=== PATIENT | male | born 2000 | race Caucasian/White ===

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

== ENCOUNTER 2018-06-04 15:39 | Emergency (ER) | payer BC ==
[~2018-06-04] VITALS: Ht 172.7 cm; Wt 77.1 kg
[2018-06-04 15:49] VITALS: BP 120/67
--- NOTE | 2018-06-04 16:02 | PHYS DOC ---
Past History Past Medical History: No Pertinent History Past Surgical History: Tonsillectomy Smoking: Non-smoker Alcohol Use: None Drug Use: None Adult General Chief Complaint Chief Complaint: Neck Pain HPI HPI Patient is a 17-year-old male patient who presents with complaining of neck pain. Patient states he was playing football today and hit somebody and since then has had pain in his neck that getting worse with bending his head or turning his head to right side. Patient rated his pain 2 at rest and 4 with movement and denies focal neuro deficit, nausea and vomiting, headache, loss of consciousness. Review of Systems Review of Systems Constitutional: Denies fever or chills [] Eyes: Denies change in visual acuity, redness, or eye pain [] HENT: Denies nasal congestion or sore throat [] Respiratory: Denies cough or shortness of breath [] Cardiovascular: No additional information not addressed in HPI [] GI: Denies abdominal pain, nausea, vomiting, bloody stools or diarrhea [] : Denies dysuria or hematuria [] Musculoskeletal: Reports neck pain, denies back pain or joint pain [] Integument: Denies rash or skin lesions [] Neurologic: Denies headache, focal weakness or sensory changes [] Endocrine: Denies polyuria or polydipsia [] All other systems were reviewed and found to be within normal limits, except as documented in this note. Allergies Allergies Allergies Coded Allergies Type Severity Reaction Last Updated Verified Penicillins Allergy Unknown 06/04/18 Yes Physical Exam Physical Exam Constitutional: Well developed, well nourished, mild distress, non-toxic appearance. [] HENT: Normocephalic, atraumatic Eyes: PERRLA, EOMI, conjunctiva normal, no discharge. [] Neck: Atraumatic, no midline tenderness, painful range of motion of flexion and right lateral rotation of neck , no tenderness, supple, no stridor. [] Cardiovascular:Heart rate regular rhythm, no murmur [] Lungs & Thorax: Bilateral breath sounds clear to auscultation [] Skin: Warm, dry, no erythema, no rash. [] Back: No tenderness, no CVA tenderness. [] Extremities: No tenderness, no cyanosis, no clubbing, ROM intact, no edema. [] Neurologic: Alert and oriented X 3, normal motor function, normal sensory function, no focal deficits noted. [] Psychologic: Affect normal, judgement normal, mood normal. [] Current Patient Data Vital Signs Vital Signs Date Time Temp Pulse Resp B/P (MAP) Pulse Ox O2 Delivery O2 Flow Rate FiO2 06/04/18 15:49 98.6 75 18 100 Room Air EKG EKG [] Radiology/Procedures Radiology/Procedures [][address] [id number] IMAGING REPORT Signed PATIENT: YENI SCOTT ACCOUNT: [id number] : 2000 LOCATION: ER AGE: 17 SEX: M EXAM STATUS: PRE ER ORD. PHYSICIAN: PANFILO RAMIREZ MD REASON: injury PROCEDURE: CERVICAL SPINE 2-3V History: Neck pain from football. Comparison: None. Findings: AP, lateral, and open mouth odontoid views of the cervical spine. No acute fracture or acute malalignment is identified. No prevertebral soft tissue swelling is seen. Bilateral C7 transverse processes appear mildly elongated. Impression: No acute osseous traumatic injury identified in the cervical spine. Electronically signed by: Alex Lira MD (06/04/2018 4:21 PM) [facility] DICTATED AND SIGNED BY: ALEX LIRA MD DATE: 06/04/18 1620 CC: PANFILO RAMIREZ MD; NON,STAFF ~ Course & Med Decision Making Course & Med Decision Making Pertinent Imaging studies reviewed. (See chart for details) Evaluation of patient in ER showed 17-year-old male patient with injury to his neck during sports. Patient had unremarkable x-ray and physical exam except for painful range of motion of his neck. Patient instructed to apply ice and plan to discharge with prescription of ibuprofen. [] Dragon Disclaimer Dragon Disclaimer This electronic medical record was generated, in whole or in part, using a voice recognition dictation system. Departure Departure: Impression: Primary Impression: Acute cervical myofascial strain Disposition: 01 HOME, SELF-CARE (at 1633) Condition: STABLE Referrals: NON,STAFF (PCP) Patient Instructions: Cervical Strain and Sprain with Rehab-[facility] Additional Instructions: Apply ice on the affected area Follow-up with your primary care physician in 3-5 days Return to ER if not getting better Scripts Ibuprofen (IBUPROFEN) 800 Mg Tablet 800 MG PO TID, #30 TAB Prov: PANFILO RAMIREZ MD 06/04/18 PANFILO RAMIREZ MD Jun 04, 2018 16:02
--- NOTE | 2018-06-04 16:25 | RAD ---
History: Neck pain from football. Comparison: None. Findings: AP, lateral, and open mouth odontoid views of the cervical spine. No acute fracture or acute malalignment is identified. No prevertebral soft tissue swelling is seen. Bilateral C7 transverse processes appear mildly elongated. Impression: No acute osseous traumatic injury identified in the cervical spine. Electronically signed by: Alex Lira MD (06/04/2018 4:21 PM) [facility]
[2018-06-04] MEDS ORDERED: IBUPROFEN 400 MG TABLET. PO ONE (16:30)
[2018-06-04] MEDS ORDERED: IBUP800T19 PO (16:36)
== END 2018-06-04 16:50 | disposition home or self-care (01) ==
LOC: ER 15:39
DX: S16.1XXA Strain of muscle, fascia and tendon at neck level, initial encounter (principal); Z88.0 Allergy status to penicillin; W50.0XXA Accidental hit or strike by another person, initial encounter; Y93.61 Activity, american tackle football; Y92.89 Other specified places as the place of occurrence of the external cause; Y99.8 Other external cause status
CPT/HCPCS: 72040; 99284